=== PATIENT | male | born 1995 | race Caucasian/White ===

== ENCOUNTER 2020-07-29 09:02 | Emergency (ER) | payer OTHER ==
[~2020-07-29] VITALS: Ht 188 cm; Wt 90.7 kg
[2020-07-29 09:19] VITALS: BP 137/78
--- NOTE | 2020-07-29 09:28 | Emergency Room Report ---
History of Present Illness General Chief Complaint: Earache Source: Patient Present Illness HPI 25-year-old male here with 5 days of left ear pain. Patient says that he went swimming last week and that the next day he began to feel pain in the left ear and "my left ear feels like I am underwater." Patient says he has noted a clear yellow drainage of fluid coming from the left external ear canal. No headaches, vision changes, focal numbness or weakness, pain of the pinna, neck pain, neck stiffness, fevers, chills. 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 COVID-19 Screening: Negative COVID-19 COVID-19 Testing Source: nasal Nursing Documentation-[facility] Past Medical History: No History, Except For History Of Psychiatric Problem: Yes - schizophrenia Review of Systems All Other Systems: negative except mentioned in HPI Physical Exam Vital Signs Date Time Temp Pulse Resp B/P (MAP) Pulse Ox O2 Delivery O2 Flow Rate FiO2 07/29/20 09:04 98.6 98 17 137/78 (97) 99 Sp02 EP Interpretation: reviewed, normal General Appearance: no apparent distress, alert, non-toxic Head: normocephalic, atraumatic Eyes: bilateral eye normal inspection, bilateral eye PERRL ENT: hearing grossly normal, normal pharynx, no angioedema, normal voice, other - Left external ear canal with noted granulation tissue and active drainage of small amount of serous fluid. Intact tympanic membranes Neck: full range of motion, supple/symm/no masses Respiratory: chest non-tender, lungs clear, normal breath sounds, speaking full sentences Cardiovascular #1: regular rate, rhythm, no edema Cardiovascular #2: 2+ carotid (R), 2+ carotid (L), 2+ radial (R), 2+ radial (L), 2+ dorsalis pedis (R), 2+ dorsalis pedis (L) Gastrointestinal: normal bowel sounds, non tender, soft, non-distended, no guarding, no rebound Musculoskeletal: back normal, normal range of motion, gait/station normal, non- tender Neurologic: alert, motor strength/tone normal, oriented x3, sensory intact, responsive, speech normal Psychiatric: judgement/insight normal, memory normal, mood/affect normal, no suicidal/homicidal ideation Lymphatic: no adenopathy Medical Decision Making Diagnostic Impression: Primary Impression: Otitis externa ER Course 25-year-old male here with left ear pain and drainage. Patient says he went swimming the day before his symptoms began. Denied headaches, vision changes, fevers, chills. This appears to be otitis externa on physical examination. No signs of malignant otitis externa, mastoiditis, perichondritis. Patient has no diabetic history. Patient says he does not have an ID and he is living at an inpatient drug rehab facility where "they do not allow me to go to the pharmacy. 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 He was given the bottle of Cortisporin that was used in the emergency department. He was told to put 4 drops of this medication in his affected ear twice per day for 7 days. Told to come back to the emergency department if he has any worsening pain, fevers, chills, headache, focal numbness or weakness, pain in the skull. He expressed understanding and was discharged. Last Vital Signs Date Time Temp Pulse Resp B/P (MAP) Pulse Ox O2 Delivery O2 Flow Rate FiO2 07/29/20 09:19 98.6 17 137/78 99 07/29/20 09:04 98 Disposition: HOME, SELF-CARE Condition: Stable Scripts Unable to Obtain Active Prescriptions or Reported Meds [facility] Patient Instructions: Otitis Externa, [id number] Additional Instructions: Use the eardrops given to you in the emergency department. Put 4 drops into the right ear twice daily for 7 days. Please follow-up with your primary care doctor in the next 1 to 3 days to discuss this emergency department visit and for reevaluation. If you have any new or worsening symptoms please return to the emergency department for reevaluation. Anastacio Robledo M.D. Jul 29, 2020 09:28
[2020-07-29] MEDS ORDERED: CORTISPORIN 1% RIGHT EAR ONE (09:30)
[2020-07-29 09:35] VITALS: BP 137/78
== END 2020-07-29 09:35 | disposition home or self-care (01) ==
LOC: EMR 09:25
DX: H60.92 Unspecified otitis externa, left ear (principal); F20.9 Schizophrenia, unspecified
CPT/HCPCS: 99282